=== PATIENT | male | born 1985 | race Caucasian/White ===

== ENCOUNTER 2020-03-09 09:51 | Emergency (ER) | payer OTHER ==
[2020-03-09] MEDS ORDERED: BACTRIM DS TAB1 EACH PO (12:08)
[2020-06-20] MEDS ORDERED: UROXATRAL 10 MG10 MG PO (13:04)
== END 2020-03-09 12:12 | disposition home or self-care (01) ==
LOC: ER1 09:51
DX: R30.0 Dysuria (principal); R33.9 Retention of urine, unspecified; R11.2 Nausea with vomiting, unspecified
CPT/HCPCS: 81001; 87086; 99283

== ENCOUNTER → 2020-06-20 | Day surgery (SDC) | payer OTHER ==
[~2020-06-20] MED LIST: BACTRIM DS TAB1 EACH PO; UROXATRAL 10 MG10 MG PO
== END | disposition home or self-care (01) ==
LOC: OR 12:14
DX: N35.919 Unspecified urethral stricture, male, unspecified site (principal); Z83.3 Family history of diabetes mellitus
CPT/HCPCS: J7040